=== PATIENT | female | born 1945 ===

== ENCOUNTER 2025-01-12 07:23 | Outpatient (RCR) | payer MEDICARE, SELFPAY | END 2025-01-12 23:59 | disposition home or self-care (01) | LOC: RPT 07:23 | PROVIDERS: ATTENDING PHYSICIAN Internal Medicine Medical Oncology; FAMILY PHYSICIAN Family Medicine | DX: I97.2 Postmastectomy lymphedema syndrome (principal); L90.5 Scar conditions and fibrosis of skin; C50.912 Malignant neoplasm of unspecified site of left female breast; C50.911 Malignant neoplasm of unspecified site of right female breast; R53.0 Neoplastic (malignant) related fatigue; C34.90 Malignant neoplasm of unspecified part of unspecified bronchus or lung; Z73.6 Limitation of activities due to disability; Z90.13 Acquired absence of bilateral breasts and nipples | CPT/HCPCS: 97163; 97530 ==

== ENCOUNTER 2025-02-15 09:08 | Outpatient (RCR) | payer MEDICARE, SELFPAY | END 2025-02-15 23:59 | disposition home or self-care (01) | LOC: RPT 09:08 | PROVIDERS: ATTENDING PHYSICIAN Internal Medicine Medical Oncology; FAMILY PHYSICIAN Family Medicine | DX: I97.2 Postmastectomy lymphedema syndrome (principal); L90.5 Scar conditions and fibrosis of skin; C50.912 Malignant neoplasm of unspecified site of left female breast; C50.911 Malignant neoplasm of unspecified site of right female breast; R53.0 Neoplastic (malignant) related fatigue; C34.90 Malignant neoplasm of unspecified part of unspecified bronchus or lung; Z73.6 Limitation of activities due to disability; Z90.13 Acquired absence of bilateral breasts and nipples | CPT/HCPCS: 97140; 97530 ==

== ENCOUNTER 2025-03-04 09:41 | Outpatient (RCR) | payer MEDICARE, SELFPAY | END 2025-03-04 10:53 | disposition home or self-care (01) | LOC: RPT 09:41 | PROVIDERS: ATTENDING PHYSICIAN Internal Medicine Medical Oncology; FAMILY PHYSICIAN Family Medicine | DX: I97.2 Postmastectomy lymphedema syndrome (principal); L90.5 Scar conditions and fibrosis of skin; C50.912 Malignant neoplasm of unspecified site of left female breast; C50.911 Malignant neoplasm of unspecified site of right female breast; R53.0 Neoplastic (malignant) related fatigue; C34.90 Malignant neoplasm of unspecified part of unspecified bronchus or lung; Z73.6 Limitation of activities due to disability; Z90.13 Acquired absence of bilateral breasts and nipples | CPT/HCPCS: 97140; 97530 ==

== ENCOUNTER → 2025-04-28 08:39 | Outpatient (REF) | payer MEDICARE, SELFPAY | LOC: RAD 08:39 | PROVIDERS: ATTENDING PHYSICIAN Internal Medicine Endocrinology, Diabetes & Metabolism; FAMILY PHYSICIAN Family Medicine | DX: E55.9 Vitamin D deficiency, unspecified (principal); M81.0 Age-related osteoporosis without current pathological fracture | CPT/HCPCS: 77080 ==

== ENCOUNTER 2025-07-21 06:55 | Outpatient (RCR) | payer MEDICARE, SELFPAY | END 2025-07-21 23:59 | disposition home or self-care (01) | LOC: RPT 06:55 | PROVIDERS: ATTENDING PHYSICIAN Internal Medicine Medical Oncology; FAMILY PHYSICIAN Family Medicine | DX: I97.2 Postmastectomy lymphedema syndrome (principal); C34.00 Malignant neoplasm of unspecified main bronchus; Z73.6 Limitation of activities due to disability; M79.602 Pain in left arm; Z85.3 Personal history of malignant neoplasm of breast; Z90.13 Acquired absence of bilateral breasts and nipples | CPT/HCPCS: 97163; 97530 ==

== ENCOUNTER 2025-08-04 09:08 | Outpatient (RCR) | payer MEDICARE, SELFPAY | END 2025-08-04 23:59 | disposition home or self-care (01) | LOC: RPT 09:08 | PROVIDERS: ATTENDING PHYSICIAN Internal Medicine Medical Oncology; FAMILY PHYSICIAN Family Medicine | DX: I97.2 Postmastectomy lymphedema syndrome (principal); C34.00 Malignant neoplasm of unspecified main bronchus; Z73.6 Limitation of activities due to disability; M79.602 Pain in left arm; Z85.3 Personal history of malignant neoplasm of breast; Z90.13 Acquired absence of bilateral breasts and nipples | CPT/HCPCS: 97110; 97140 ==

== ENCOUNTER 2025-08-25 13:38 | Outpatient (RCR) | payer MEDICARE, SELFPAY | END 2025-09-22 07:59 | disposition home or self-care (01) | LOC: RPT 13:38 | PROVIDERS: ATTENDING PHYSICIAN Internal Medicine Medical Oncology; FAMILY PHYSICIAN Family Medicine | DX: I97.2 Postmastectomy lymphedema syndrome (principal); C34.00 Malignant neoplasm of unspecified main bronchus; Z73.6 Limitation of activities due to disability; M79.602 Pain in left arm; Z85.3 Personal history of malignant neoplasm of breast; Z90.13 Acquired absence of bilateral breasts and nipples | CPT/HCPCS: 97140; 97530 ==